=== PATIENT | male | born 1975 | race Hispanic/Latino ===

== ENCOUNTER 2017-01-08 19:36 | Emergency (ER) | payer MEDICAID, OTHER ==
[2017-01-08 19:39] VITALS: BMI 31.6
[2017-01-08] MEDS ORDERED: Oxycodone/Acetaminophen 5/325 mg Tab PO STA (20:15)
--- NOTE | 2017-01-08 20:20 | ED PDOC ---
Arrival/HPI - General Chief Complaint: Upper Extremity Problem/Injury Time Seen by Provider: 01/08/17 19:52 Historian: Patient - History of Present Illness Narrative History of Present Illness (Text): 01/08/17 20:17 41-year-old female presents today with a 3 week history of left sided upper back pain radiating into the left arm. Patient denies any recent trauma or injury. Patient states one day he started to develop an achy pain in the upper back. Patient states the pain has been gradually worsening and he now has a shooting pain that runs into the left arm and into the hand. Pt states today the pain was the strongest it has ever been and he cant take the pain anymore. Patient states occasionally he has a tingling sensation in the hands. He states the pain is worse with range of motion of the arm. He denies chest pain or shortness of breath. Patient states he was seen by his primary care physician and had x-rays done 2 weeks ago but does not know the results. Patient states he was given a prescription for Naprosyn but he states it does not help with the pain. No other complaints Time/Duration: > week (3 weeks) Symptom Onset: Gradual Symptom Course: Worsening Quality: Aching, Stabbing, Throbbing Severity Level: 10, Severe Past Medical History - Provider Review Nursing Documentation Reviewed: Yes - Travel History Have you recently traveled outside [place] w/in the past 3 mons?: No - Infectious Disease Hx of Infectious Diseases: None - Tetanus Immunization Tetanus Immunization: Unknown - Psychiatric Hx Psychophysiologic Disorder: No Hx Substance Use: No - Surgical History Hx Orthopedic Surgery: Yes (Rt. wrist) - Anesthesia Hx Anesthesia: No Family/Social History - Physician Review Nursing Documentation Reviewed: Yes Family/Social History: Unknown Family HX Smoking Status: Light Smoker < 10 Cigarettes Daily Hx Alcohol Use: Yes Frequency of alcohol use: Socially Hx Substance Use: No Allergies/Home Meds Allergies/Adverse Reactions: Allergies No Known Allergies Allergy (Verified 06/16/16 13:13) Review of Systems - Review of Systems Constitutional: absent: Fatigue, Fevers Respiratory: absent: SOB, Cough Cardiovascular: absent: Chest Pain, Palpitations Gastrointestinal: absent: Abdominal Pain, Nausea, Vomiting Musculoskeletal: Arthralgias, Back Pain Skin: absent: Rash, Pruritis Neurological: absent: Headache, Dizziness Psychiatric: absent: Anxiety, Depression Physical Exam Vital Signs Reviewed: Yes Vital Signs Temp Pulse Resp BP Pulse Ox 01/09/17 00:48 98.0 F 81 18 133/76 98 01/08/17 22:41 84 17 147/83 97 01/08/17 19:55 98.3 F 78 20 131/86 97 Temperature: Afebrile Blood Pressure: Normal Pulse: Regular Respiratory Rate: Normal Appearance: Positive for: Well-Appearing, Non-Toxic, Comfortable Pain Distress: None Mental Status: Positive for: Alert and Oriented X 3 - Systems Exam Head: Present: Atraumatic Mouth: Present: Moist Mucous Membranes Neck: Present: Normal Range of Motion, Trachea Midline. No: MIDLINE TENDERNESS , Paraspinal Tenderness Respiratory/Chest: Present: Clear to Auscultation, Good Air Exchange. No: Respiratory Distress, Accessory Muscle Use Cardiovascular: Present: Regular Rate and Rhythm, Normal S1, S2. No: Murmurs Abdomen: No: Tenderness Back: Present: Normal Inspection, Paraspinal Tenderness (+ left sided trapezius , + ttp medial aspect of scapula; no edema, no erythema; no ecchymosis; ). No : CVA Tenderness, Midline Tenderness Upper Extremity: Present: Normal Inspection, Normal ROM Neurological: Present: GCS=15 Skin: Present: Warm, Dry, Normal Color. No: Rashes Psychiatric: Present: Alert, Oriented x 3 Medical Decision Making ED Course and Treatment: 01/08/17 20:26 41yr old male with 3 week history of left sided back pain with radiation into the left arm, worsening over the past 3 weeks. cbc wnl cmp wnl trop wnl ekg: NSR at 69b/m no st elevations, normal axis. cxr; wnl toradol, flexeril, percocet given for pain. pt reassessment: pt with continued pain; requesting further imaging of back and neck. pt with continued pain. morphine added. ct of c-spine : FINDINGS: Artifacts: Streak artifact limits evaluation of the cervical spine. Vertebrae: There is straightening of the cervical lordosis. There is no prevertebral soft tissue swelling. There no fractures or alignment abnormalities. There is disc space narrowing greatest at C5/C6 and C6/C7. At C6-7 there is endplate irregularity and sclerosis. There is subchondral cyst. There anterior osteophytes. There are small posterolateral spur at C5/C6 encroaching on neural foramina. Degenerative osteophytes are largest anteriorly at C6/C7. Discs/spinal canal/neural foramina: See above. Soft tissues: See above. Thyroid: Thyroid is unremarkable Lung apices: Lung apices are clear Other findings: Facet joints align anatomically.Spinous processes align in the expected fashion. IMPRESSION: Degenerative change greatest at C5-6 and C6-7; slightly limited evaluation due to body habitus and streak artifact MRI may be helpful for more complete evaluation CT T-spine:FINDINGS: Vertebrae: Thoracic vertebral bodies are normal in height and alignment. There are no vertebral body fractures. Posterior elements are intact all levels. Facet jointsSpinous processes align in the expected fashion. Adjacent posterior ribs are intact. There is minimal degenerative disc disease. There is small Schmorl's nodes at multiple levels. Discs/spinal canal/neural foramina: See above. Soft tissues: There are no paraspinous soft tissue masses Lungs: There is dependent atelectasis in the visualized lungs. IMPRESSION: No acute osseous abnormality pt reassessment; pain slightly improved; still with pain; resting comfortably. discussed results in depth with patient; stressed importance of f/u with pmd and specialist. advised patient that he may need MRI. advised return if symptoms worsen,persist or if new symptoms develop. advised rest, heating pad. Patient verbalizes understanding of discharge instructions and need for immediate followup. all aspects of this case were discussed the attending of record. impression; back pain, arm pain, radiculopathy Motrin every 6 hours as needed for pain Flexeril one tablet every 8 hours as needed for muscle spasms: May cause drowsiness Percocet; one tablet every 6 hours as needed for moderate to severe pain: May cause drowsiness Followup with the orthopedist within the next 2 days Followup with primary care physician within the next 2 days Return if symptoms worsen persist or if new symptoms develop 01/09/17 01:18 - Lab Interpretations Lab Results: 01/08/17 20:27 01/08/17 20:27 Lab Results 01/08/17 20:27: WBC 10.8, RBC 4.64, Hgb 15.1, Hct 43.2, MCV 93.1, MCH 32.5, MCHC 35.0, RDW 12.6, Plt Count 184, MPV 10.6, Gran % 73.5 H, Lymph % (Auto) 18.8 L, [place] % (Auto) 5.5, Eos % (Auto) 1.9, Baso % (Auto) 0.3, Gran # 7.92 H, Lymph # 2.0, [place] # 0.6, Eos # 0.2, Baso # 0.03 01/08/17 20:27: Sodium 140, Potassium 4.2, Chloride 104, Carbon Dioxide 26, Anion Gap 14, BUN 21, Creatinine 0.9, Est GFR ( Amer) > 60, Est GFR (Non- Af Amer) > 60, Random Glucose 100, Calcium 9.3, Total Bilirubin 0.6, AST 41, ALT 44, Alkaline Phosphatase 63, Lactate Dehydrogenase 436, Total Creatine Kinase 237 H, CK-MB (CK-2) 0.8, CK-MB (CK-2) % Cancelled, Troponin I < 0.01, Total Protein 7.2, Albumin 4.2, Globulin 2.9, Albumin/Globulin Ratio 1.4 - RAD Interpretation Radiology Orders: 01/08/17 20:20 CHEST PORTABLE [RAD] Stat 01/08/17 22:26 CERVICAL SPINE W/O CONTRAST [CT] Stat THORACIC SPINE W/O CONT [CT] Stat - Medication Orders Current Medication Orders: Discontinued Medications Cyclobenzaprine HCl (Flexeril) 10 mg PO STAT STA Stop: 01/08/17 20:16 Last Admin: 01/08/17 20:34 Dose: 10 mg Ketorolac Tromethamine (Toradol) 30 mg IVP STAT STA Stop: 01/08/17 20:32 Last Admin: 01/08/17 20:37 Dose: 30 mg Morphine Sulfate (Morphine) 2 mg IVP STAT STA Stop: 01/08/17 22:29 Last Admin: 01/08/17 23:51 Dose: 2 mg Oxycodone/Acetaminophen (Percocet 5/325 Mg Tab) 1 tab PO STAT STA Stop: 01/08/17 20:16 Last Admin: 01/08/17 20:33 Dose: 1 tab Disposition/Present on Arrival - Present on Arrival Any Indicators Present on Arrival: No History of DVT/PE: No History of Uncontrolled Diabetes: No Urinary Catheter: No History of Decub. Ulcer: No History Surgical Site Infection Following: None - Disposition Have Diagnosis and Disposition been Completed?: Yes Diagnosis: Back pain, Neck pain, Arm pain Disposition: HOME/ ROUTINE Disposition Time: 23:45 Patient Plan: Discharge Condition: GOOD Discharge Instructions (ExitCare): Back Pain (ED) Additional Instructions: Motrin every 6 hours as needed for pain Flexeril one tablet every 8 hours as needed for muscle spasms: May cause drowsiness Percocet; one tablet every 6 hours as needed for moderate to severe pain: May cause drowsiness Followup with the orthopedist within the next 2 days Followup with primary care physician within the next 2 days Return if symptoms worsen persist or if new symptoms develop Prescriptions: Cyclobenzaprine [Cyclobenzaprine HCl] 10 mg PO Q8 #10 tab Ibuprofen [Motrin] 600 mg PO Q6H PRN #20 tab PRN Reason: pain/fever reduction oxyCODONE/Acetaminophen [Percocet 5/325 mg Tab] 1 tab PO Q6H PRN #10 tab PRN Reason: moderate to severe pain Referrals: Dick Lyman MD [Primary Care Provider] - Follow up with primary Joseph Contreras MD [Staff Provider] - Follow up with primary Forms: WORK NOTE
[2017-01-08 20:47] LABS: BASO # 0.03 K/mm3 (0.0-2.0); BASO % 0.3 % (0.0-3.0); EOS # 0.2 (0.0-0.7); EOS % 1.9 % (1.5-5.0); GRAN # 7.92 (1.4-6.5); GRAN % 73.5 % (50.0-68.0); HEMOGLOBIN 15.1 gm/dL (14.0-18.0); LYMPH % 18.8 % (22.0-35.0); MEAN CELL VOLUME 93.1 fL (80.0-105.0); MEAN CORPUSCULAR HEMOGLOBIN 32.5 pg (25.0-35.0); MEAN PLATELET VOLUME 10.6 fl (7.0-11.0); MONO # 0.6 (0.1-0.6); MONO % 5.5 % (1.0-6.0); PLATELET COUNT 184 10^3/uL (120.0-450.0); RBC 4.64 10^6/uL (3.5-6.1); RED CELL DISTRIBUTION WIDTH 12.6 % (11.5-14.5); WHITE BLOOD COUNT 10.8 10^3/ul (4.5-11.0)
[2017-01-08 21:09] LABS: ALB/GLOB RATIO 1.4 (1.1-1.8); ALBUMIN 4.2 g/dL (3.0-4.8); ALT/SGPT 44 U/L (7-56); AST/SGOT 41 U/L (15-59); BLOOD UREA NITROGEN 21 mg/dL (7-21); CALCIUM 9.3 mg/dL (8.4-10.5); GFR AFRICAN-AMERICAN > 60; GFR NON-AFRICAN AMERICAN > 60
[2017-01-08 21:34] LABS: TROPONIN I < 0.01 ng/mL
[2017-01-08 22:20] LABS: CK-MB 0.8 ng/mL (0.0-3.6)
[2017-01-08] MEDS ORDERED: Morphine 2 mg/ml ISec IVP STA (22:28)
--- NOTE | 2017-01-08 23:27 | CT ---
EXAM: CT Cervical Spine Without Intravenous Contrast CLINICAL HISTORY: 41 years old, male; Pain; Cervicalgia; Patient HX: Back/neck pain/ radiating into left arm TECHNIQUE: Axial computed tomography images of the cervical spine without intravenous contrast. This CT exam was performed using one or more of the following dose reduction techniques: automated exposure control, adjustment of the mA and/or kV according to patient size, and/or use of iterative reconstruction technique. Coronal and sagittal reformatted images were created and reviewed. EXAM DATE/TIME: 01/08/2017 10:26 PM COMPARISON: There are no prior studies for comparison. FINDINGS: Artifacts: Streak artifact limits evaluation of the cervical spine. Vertebrae: There is straightening of the cervical lordosis. There is no prevertebral soft tissue swelling. There no fractures or alignment abnormalities. There is disc space narrowing greatest at C5/C6 and C6/C7. At C6-7 there is endplate irregularity and sclerosis. There is subchondral cyst. There anterior osteophytes. There are small posterolateral spur at C5/C6 encroaching on neural foramina. Degenerative osteophytes are largest anteriorly at C6/C7. Discs/spinal canal/neural foramina: See above. Soft tissues: See above. Thyroid: Thyroid is unremarkable Lung apices: Lung apices are clear Other findings: Facet joints align anatomically.Spinous processes align in the expected fashion. IMPRESSION: Degenerative change greatest at C5-6 and C6-7; slightly limited evaluation due to body habitus and streak artifact MRI may be helpful for more complete evaluation
--- NOTE | 2017-01-08 23:31 | CT ---
EXAM: CT Thoracic Spine Without Intravenous Contrast CLINICAL HISTORY: 41 years old, male; Pain; Pain in thoracic spine; Patient HX: Upper back pain TECHNIQUE: Axial computed tomography images of the thoracic spine without intravenous contrast. This CT exam was performed using one or more of the following dose reduction techniques: automated exposure control, adjustment of the mA and/or kV according to patient size, and/or use of iterative reconstruction technique. Coronal and sagittal reformatted images were created and reviewed. EXAM DATE/TIME: 01/08/2017 10:26 PM COMPARISON: There are no prior studies for comparison. FINDINGS: Vertebrae: Thoracic vertebral bodies are normal in height and alignment. There are no vertebral body fractures. Posterior elements are intact all levels. Facet jointsSpinous processes align in the expected fashion. Adjacent posterior ribs are intact. There is minimal degenerative disc disease. There is small Schmorl's nodes at multiple levels. Discs/spinal canal/neural foramina: See above. Soft tissues: There are no paraspinous soft tissue masses Lungs: There is dependent atelectasis in the visualized lungs. IMPRESSION: No acute osseous abnormality
[2017-01-09 00:55] VITALS: BP 133/76; PULSE 81; RESP 18; TEMP 98; O2SAT 98
--- NOTE | 2017-01-09 09:55 | RAD ---
HISTORY: upper back pain COMPARISON: No prior. FINDINGS: LUNGS: Mild bibasilar atelectasis right greater than left PLEURA: No significant pleural effusion identified, no pneumothorax apparent. CARDIOVASCULAR: Heart appears enlarged. OSSEOUS STRUCTURES: No significant abnormalities. VISUALIZED UPPER ABDOMEN: Normal. OTHER FINDINGS: None. IMPRESSION: Minor bibasilar atelectasis right greater than left Cardiomegaly
--- NOTE | 2017-01-09 10:25 | CARD ---
APPROVED REPORT EKG Measurement Heart [id number] <Conclusion> Normal sinus rhythm Normal ECG
== END 2017-01-09 00:58 | disposition home or self-care (01) ==
LOC: ED 19:36
DX: M54.9 Dorsalgia, unspecified (principal); M54.2 Cervicalgia; M79.602 Pain in left arm
CPT/HCPCS: 71010; 72125; 72128; 80053; 82550; 82553; 83615; 84484; 85025; 93005; 96374; 96375; 99284; J1885; J2270